=== PATIENT | male | born 1995 | race Caucasian/White ===

== ENCOUNTER 2016-12-11 20:18 | Emergency (ER) | payer MEDICAID ==
[~2016-12-11] VITALS: Ht 182.9 cm; Wt 70.3 kg
--- NOTE | 2016-12-11 21:03 | NUR ---
C/O PAIN TO THE LEFT SIDE OF THE HEAD,LEFT FACE ,LEFT HAND,SHOULDER AND RT KNEE, PT STATES HE SLIPPED AND FELL FROM SECOND FLOOR BUILDING... PT IS ALERT, ORIENTED X 4, NO RESP DISTRESS NOTED OR REPORTED UPON ASSESSMENT...MD AT BEDSIDE...
[2016-12-11] MEDS ORDERED: NEOMY/BACITRA/POLYMYXIN B OINT UD PACKET TP ONE ×2 (21:30→21:40)
[2016-12-11] MEDS ORDERED: HYDROCODONE/APAP 5-325MG TABLET PO ONE (21:30)
[2016-12-11] MEDS ORDERED: HYDROCODONE/APAP 5-325MG TABLET ONE (21:37)
[2016-12-11] MEDS ORDERED: IBUPROFEN 600 MG TABLET PO ONE (22:45)
[2016-12-11] MEDS ORDERED: IBUPROFEN 600 MG TABLET ONE (22:50)
--- NOTE | 2016-12-11 23:49 | NUR ---
Patient discharged to home in stable conditon. Written and verbal after care instructions given. Patient verbalizes understanding of instructions. Pt walked out of ER unassisted with belongings at side...
[2016-12-11 23:50] VITALS: BP 126/95
== END 2016-12-11 23:52 | disposition home or self-care (01) ==
LOC: ER 20:24
DX: S00.83XA Contusion of other part of head, initial encounter (principal); S49.92XA Unspecified injury of left shoulder and upper arm, initial encounter; S89.91XA Unspecified injury of right lower leg, initial encounter; M79.642 Pain in left hand; W13.2XXA Fall from, out of or through roof, initial encounter; Y93.89 Activity, other specified; Y99.8 Other external cause status; Y92.89 Other specified places as the place of occurrence of the external cause
CPT/HCPCS: 70030-TC; 73030; 73130; 73560; A4663

== ENCOUNTER 2017-06-04 12:43 | Emergency (ER) | payer MEDICAID ==
[~2017-06-04] VITALS: Ht 182.9 cm; Wt 74.8 kg
--- NOTE | 2017-06-04 13:46 | NUR ---
Patient discharged to home in stable conditon. Written and verbal after care instructions given. Patient verbalizes understanding of instructions.pt with father
== END 2017-06-04 13:50 | disposition home or self-care (01) ==
LOC: ER 12:43
DX: K21.0 Gastro-esophageal reflux disease with esophagitis (principal)
CPT/HCPCS: A4663

== ENCOUNTER 2017-09-02 17:37 | Emergency (ER) | payer MEDICAID ==
[~2017-09-02] VITALS: Ht 182.9 cm; Wt 74.8 kg
--- NOTE | 2017-09-02 17:47 | NUR ---
Patient is AOx4, ambulated to ER bed 4A with brisk steady gait, NAD, respiration:easy, calm, no nausea or pains expressed.
[2017-09-02 18:06] LABS: BASOPHILS % (AUTO) 0.7 % (0.0-2.0); EOSINOPHILS # (AUTO) 0.1 K/uL (0.0-0.7); EOSINOPHILS % (AUTO) 1.9 % (0.0-7.0); HEMATOCRIT 42.8 % (36.7-47.1); HEMOGLOBIN 14.7 g/dL (12.5-16.3); LYMPHOCYTES # (AUTO) 1.6 K/uL (20.0-40.0); LYMPHOCYTES % (AUTO) 25.7 % (20.5-74.5); MEAN CORPUSCULAR HEMOGLOBIN 30.8 uug (23.8-33.4); MEAN CORPUSCULAR HGB CONC 34 g/dL (32.5-36.3); MEAN CORPUSCULAR VOLUME 89.6 fL (73.0-96.2); MONOCYTES # (AUTO) 0.6 K/uL (2.0-10.0); MONOCYTES % (AUTO) 10.1 % (0-11); NEUTROPHILS # (AUTO) 3.9 K/uL (1.8-8.9); NEUTROPHILS % (AUTO) 61.6 % (31.5-64.5); PLATELET COUNT (AUTO) 218 K/uL (152-348); RED BLOOD CELL COUNT(AUTO) 4.78 MIL/uL (4.06-5.63); WHITE BLOOD COUNT (AUTO) 6.3 K/uL (3.6-10.2)
[2017-09-02 18:12] LABS: CREATININE 1.1 mg/dL (0.6-1.3); POTASSIUM 4.1 mmol/L (3.5-5.1)
[2017-09-02 18:24] LABS: BILIRUBIN,DIRECT 0.1 mg/dL (0.0-0.2); BILIRUBIN,TOTAL 0.5 mg/dL (0.2-1.0); TOTAL PROTEIN, SERUM 7.7 g/dL (6.4-8.2)
--- NOTE | 2017-09-02 18:24 | NUR ---
Patient discharged to home in stable conditon. Written and verbal after care instructions given to patient. Patient verbalizes understanding of instructions.
== END 2017-09-02 18:30 | disposition home or self-care (01) ==
LOC: ER 17:38
DX: R42 Dizziness and giddiness (principal)
CPT/HCPCS: 36415; 85025; A4663